=== PATIENT | male | born 1975 | race Caucasian/White ===

== ENCOUNTER 2021-07-03 22:26 | Emergency (ER) | payer BC ==
[~2021-07-03] VITALS: Ht 182.9 cm; Wt 122.5 kg
[2021-07-04] MEDS ORDERED: HYDROCODON-ACE1 EA10 PO (00:14)
== END 2021-07-04 00:28 | disposition home or self-care (01) ==
LOC: ED 22:26
DX: S93.402A Sprain of unspecified ligament of left ankle, initial encounter (principal); W10.9XXA Fall (on) (from) unspecified stairs and steps, initial encounter
CPT/HCPCS: 73610; 99283-25